=== PATIENT | female | born 1990 | race African-American/Black ===

== ENCOUNTER 2017-10-14 20:08 | Emergency (ER) | payer SELFPAY ==
[2017-10-14 21:25] LABS: Absolute Lymphocytes (CBC) 3.6 K/uL (0.7-4.9); Absolute Monocytes 0.6 K/uL (0.1-1.3); Absolute Neutrophil 6.4 K/uL (1.8-8.0); Basophils % 0.6 % (0-1.3); Eosinophils % 1.4 % (0-4.4); Hematocrit 37.9 % (36.0-45.0); Lymphocytes % 33.1 % (15.3-44.8); MCV 87.7 fL (80-100); MPV 8.5 fL (7.6-11.3); Monocytes % 5.9 % (3.3-12.3); RBC Red Blood Cell Count 4.32 M/uL (3.86-4.86)
[2017-10-14 21:34] LABS: Barbiturates NEGATIVE; Benzodiazepines NEGATIVE; Cocaine NEGATIVE; METHAMPHETAM NEGATIVE; Opiates NEGATIVE; Phencyclidine NEGATIVE; THC Cannibis POSITIVE
[2017-10-14] MEDS ORDERED: NA CHLORIDE 0.9% 1,000 ML ONE (21:46)
[2017-10-14 21:54] LABS: Bicarbonate 29 mEq/L (21-31); Glucose Level 94 mg/dL (65-120); Potassium 3.5 mEq/L (3.6-5.0); Sodium Level 139 mEq/L (135-145)
[2017-10-14 22:00] LABS: ALT/SGPT 12 IU/L (10-60); AST/SGOT 20 IU/L (10-42); Albumin 4.1 g/dL (3.2-5.5); Alkaline Phosphatase 59 IU/L (42-121); BUN Blood Urea Nitrogen 11 mg/dL (6-20); Bilirubin Direct 0.1 mg/dL (0-0.2); Bilirubin Total 0.4 mg/dL (0.3-1.2); Protein, Total 7.3 g/dL (6.0-8.3)
[2017-10-14] MEDS ORDERED: POTASSIUM 25 MEQ EFFERV TAB ONE (22:03)
--- NOTE | 2017-10-14 22:30 | RAD REPORT ---
EXAM DESCRIPTION: CT - Chest For Pe Angio - 10/14/2017 10:20 pm CLINICAL HISTORY: Chest pain COMPARISON: None. TECHNIQUE: Dynamically enhanced axial 3 mm thick images of the chest were obtained during administra tion of <100> mL Isovue 370 IV contrast. Coronal and oblique reconstruction images were generated and reviewed. Exam utilizes a protocol for optimal evaluation of pulmonary arterial tree. All CT scans are performed using dose optimization technique as appropriate and may include automated exposure control or mA/KV adjustment according to patient size. FINDINGS: A pulmonary embolus is not seen. A thoracic aortic aneurysm is not noted. A bovine aorta is present A pleural effusion is not seen. A pericardial effusion is not seen. A lung consolidation is not present. IMPRESSION: Negative for a pulmonary embolism.
--- NOTE | 2017-10-14 22:42 | ER ---
Nurse's Notes [facility] Name: Mattie Duffy Age: 27 yrs Sex: Female : 1990 Arrival Date: 10/14/2017 Time: 20:12 Bed 26 Private MD: Diagnosis: Other chest pain;Paresthesia of skin-Right Forearm Presentation: 10/14 20:18 Presenting complaint: Patient states: Left anterior chest pain that started last night aj while riding in car. Patient reports pain is intermittent and is worse with deep breathing. Denies N/V. Transition of care: patient was not received from another setting of care. Onset of symptoms was October 13, 2017. Initial Sepsis Screen: Does the patient meet any 2 criteria? No. Patient's initial sepsis screen is negative. Does the patient have a suspected source of infection? No. Patient's initial sepsis screen is negative. Care prior to arrival: None. 20:18 Method Of Arrival: Ambulatory aj 20:18 Acuity: MARK 3 aj Triage Assessment: 20:20 General: Appears in no apparent distress. comfortable, Behavior is calm, cooperative, aj appropriate for age. Pain: Complains of pain in chest Pain currently is 0 out of 10 on a pain scale. at worst was 10 out of 10 on a pain scale. Neuro: Level of Consciousness is awake, alert, obeys commands, Oriented to person, place, time, situation, Appropriate for age. Cardiovascular: Reports chest pain, Capillary refill < 3 seconds in bilateral fingers Patient's skin is warm and dry. Respiratory: Reports pain with respiration Airway is patent Respiratory effort is even, unlabored, Respiratory pattern is regular, symmetrical. Derm: Skin is intact, is healthy with good turgor, Skin is pink, warm \T\ dry. normal. 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 - Social history:: Smoking status: Patient/guardian denies using tobacco, Patient uses street drugs, marijuana. Screenin:30 Abuse screen: Denies threats or abuse. Denies injuries from another. Nutritional kr2 screening: No deficits noted. Tuberculosis screening: No symptoms or risk factors identified. Fall Risk None identified. Assessment: 20:30 General: Appears in no apparent distress. comfortable, well groomed, well developed, kr2 well nourished, Behavior is calm, cooperative, appropriate for age. Pain: Complains of pain in chest Pain does not radiate. Pain currently is 0 out of 10 on a pain scale. at worst was 8 out of 10 on a pain scale. Quality of pain is described as pressure, sharp, Pain began suddenly, 1 day ago. Is episodic, Alleviated by rest. Neuro: Level of Consciousness is awake, alert, obeys commands, Oriented to person, place, time, situation, Appropriate for age. Cardiovascular: Capillary refill < 3 seconds in bilateral fingers Patient's skin is warm and dry. Respiratory: Airway is patent Respiratory effort is even, unlabored, Respiratory pattern is regular, symmetrical. GI: Abdomen is flat, non-distended. : No signs and/or symptoms were reported regarding the genitourinary system. EENT: Nares are clear Oral mucosa is moist. Derm: Skin is intact, is healthy with good turgor, Skin is pink, warm \T\ dry. Musculoskeletal: Circulation, motion, and sensation intact. 21:30 Reassessment: Patient appears in no apparent distress at this time. Patient and/or kr2 family updated on plan of care and expected duration. Pain level reassessed. Patient is alert, oriented x 3, equal unlabored respirations, skin warm/dry/pink. Patient denies pain at this time. 22:30 Reassessment: Patient appears in no apparent distress at this time. Patient and/or kr2 family updated on plan of care and expected duration. Pain level reassessed. Patient is alert, oriented x 3, equal unlabored respirations, skin warm/dry/pink. Patient denies pain at this time. 10/15 00:29 Reassessment: Reassessment: Patient left at 2315 but was not taken off of status board. kr Vital Signs: 10/14 20:20 BP 127 / 78; Pulse 72; Resp 16; Temp 98.6; Pulse Ox 98% on R/A; Weight 52.16 kg; Height aj 5 ft. 2 in. (157.48 cm); Pain 0/10; 21:30 BP 114 / 70; Pulse 57; Resp 16; Pulse Ox 98% on R/A; kr2 22:25 BP 121 / 61; Pulse 58; Resp 17; Pulse Ox 100% on R/A; kr2 23:30 BP 122 / 60; Pulse 60; Resp 15; Pulse Ox 100% on R/A; kr2 20:20 Body Mass Index 21.03 (52.16 kg, 157.48 cm) ED Course: 20:12 Patient arrived in ED. al2 20:19 Triage completed. aj 20:20 Arm band placed on right wrist. Patient placed in an exam room. aj 20:30 Patient has correct armband on for positive identification. Bed in low position. Call kr2 light in reach. Side rails up X 1. secured entrance monitor on. Pulse ox on. NIBP on. Door closed. Warm blanket given. Head of bed elevated. 20:30 Patient maintains SpO2 saturation greater than 95% on room air. kr2 20:39 Gume Alcocer PA is PHCP. cp 20:39 Gume Cui MD is Attending Physician. cp 21:04 Initial lab(s) drawn, by id, sent to lab. Urine collected: clean catch specimen, liza cb2 colored, EKG done, by ED staff, reviewed by Gume Cui MD. Inserted saline lock: 20 gauge in right antecubital area, using aseptic technique. Blood collected. 21:32 Notified Nurse Practitioner and/or Physician Weight Reducing Technician of a critical lab result(s), d fc dimer 539. 21:58 Radiology exam delayed due to lab results not completed at this time. (BUN/Creatinine). vm2 21:58 Maria Luz Abraham, RN is Primary Nurse. kr2 22:[address] via wheelchair. vm2 22:20 CT Chest For PE Angio In Process Unspecified. EDMS 23:10 IV discontinued, intact, bleeding controlled, No redness/swelling at site. Pressure kr2 dressing applied. 23:30 No provider procedures requiring assistance completed. kr2 Administered Medications: 21:50 Drug: NS 0.9% 1000 ml Route: IV; Rate: 1 bolus; Site: right antecubital; kr2 22:30 Follow up: Response: No adverse reaction; IV Status: Completed infusion kr2 22:30 Drug: Potassium Effervescent Tablet 25 mEq Route: PO; kr2 23:00 Follow up: Response: No adverse reaction kr2 22:59 Drug: TORadol 30 mg Route: IVP; Site: right antecubital; kr2 23:15 Follow up: Response: No adverse reaction kr2 Outcome: 22:42 Discharge ordered by . trevor 23:10 Discharged to home ambulatory, with family. kr2 23:10 Condition: good 23:10 Discharge instructions given to patient, Instructed on discharge instructions, follow up and referral plans. medication usage, Demonstrated understanding of instructions, follow-up care, medications, Prescriptions given X 1. 10/15 00:27 Patient left the ED. fc Signatures: Dispatcher [employer] EDAdelia Mohan RN RN Sary Dang RN RN fc Gume Alcocer PA PA cp McGuire, Victoria vm2 Bulan, Christian cb2 Reaves, Karey, RN RN kr2 Coco Koroma
--- NOTE | 2017-10-14 22:42 | EDPHYS ---
Physician Documentation [facility] Name: Mattie Duffy Age: 27 yrs Sex: Female : 1990 Arrival Date: 10/14/2017 Time: 20:12 Bed 26 Private MD: ED Physician Gume Cui HPI: 10/14 20:52 This 27 yrs old Black Female presents to ER via Ambulatory with complaints of Chest cp Pain, R ARM NUMBNESS. 20:52 The patient or guardian reports chest pain that is located primarily in the anterior cp chest wall, bilaterally. 20:52 The pain does not radiate. Associated signs and symptoms: Pertinent positives: cp intermittent paresthesias of right forearm, Pertinent negatives: abdominal pain, cough, headache, lower extremity pain, lower extremity swelling, near syncope, recent travel, shortness of breath, syncope, vomiting. The chest pain is described as sharp. 20:52 Duration: The patient or guardian reports a single episode, that is still ongoing, and cp worsening. Modifying factors: the symptoms are aggravated by deep breath, palpation of area. 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 - Social history:: Smoking status: Patient/guardian denies using tobacco, Patient uses street drugs, marijuana. ROS: 20:55 Constitutional: Negative for body aches, chills, fever, poor PO intake. cp 20:55 Eyes: Negative for injury, pain, redness, and discharge. cp 20:55 ENT: Negative for drainage from ear(s), ear pain, sore throat, difficulty swallowing, difficulty handling secretions. 20:55 Cardiovascular: Positive for chest pain, Negative for edema, palpitations. 20:55 Respiratory: Negative for cough, dyspnea on exertion, shortness of breath, wheezing. 20:55 Abdomen/GI: Negative for abdominal pain, vomiting, diarrhea, constipation, black/tarry stool, rectal bleeding. 20:55 Back: Negative for pain at rest, pain with movement, radiated pain. 20:55 : Negative for urinary symptoms. 20:55 Skin: Negative for cellulitis, rash. 20:55 Neuro: Negative for altered mental status, headache, syncope, near syncope, weakness. 20:55 All other systems are negative. Exam: 20:38 ECG was reviewed by the Attending Physician. cp 21:03 Constitutional: The patient appears in no acute distress, alert, awake, cp non-diaphoretic, non-toxic, well developed, well nourished. 21:03 Head/Face: Normocephalic, atraumatic. cp 21:03 Eyes: Periorbital structures: appear normal, Pupils: equal, round, and reactive to light and accomodation, Extraocular movements: intact throughout, Conjunctiva: normal, no exudate, no injection, Sclera: no appreciated abnormality, Lids and lashes: appear normal, bilaterally. 21:03 ENT: External ear(s): are unremarkable, Ear canal(s): are normal, clear, TM's: bulging, is not appreciated, bilaterally, dullness, bilaterally, erythema, is not appreciated, bilaterally, Nose: is normal, Mouth: Lips: moist, Oral mucosa: pink and intact, moist, Posterior pharynx: is normal, airway is patent, no erythema, no exudate, Voice: is normal. 21:03 Neck: ROM/movement: is normal, is supple, without pain, no range of motions limitations, no nuchal rigidity. 21:03 Chest/axilla: Inspection: normal, Palpation: crepitus, is not appreciated, tenderness, that is mild, of the mid-sternal area, that partially reproduces the patient's complaints. 21:03 Cardiovascular: Rate: normal, Rhythm: regular, Pulses: Pulses are 2+ in right radial artery and left radial artery. Heart sounds: murmur, not appreciated, rub, not appreciated, gallop, not appreciated, Edema: is not appreciated, JVD: is not appreciated. 21:03 Respiratory: the patient does not display signs of respiratory distress, Respirations: normal, no use of accessory muscles, no retractions, no splinting, no tachypnea, labored breathing, is not present, Breath sounds: are clear throughout, no decreased breath sounds, no stridor, no wheezing. 21:03 Abdomen/GI: Inspection: abdomen appears normal, Bowel sounds: active, all quadrants, Palpation: abdomen is soft and non-tender, in all quadrants, rebound tenderness, is not appreciated, voluntary guarding, is not appreciated, involuntary guarding, is not appreciated. Vital Signs: 20:20 BP 127 / 78; Pulse 72; Resp 16; Temp 98.6; Pulse Ox 98% on R/A; Weight 52.16 kg; Height aj 5 ft. 2 in. (157.48 cm); Pain 0/10; 21:30 BP 114 / 70; Pulse 57; Resp 16; Pulse Ox 98% on R/A; kr2 22:25 BP 121 / 61; Pulse 58; Resp 17; Pulse Ox 100% on R/A; kr2 23:30 BP 122 / 60; Pulse 60; Resp 15; Pulse Ox 100% on R/A; kr2 20:20 Body Mass Index 21.03 (52.16 kg, 157.48 cm) aj MDM: 20:39 Patient medically screened. cp 21:00 Differential diagnosis: abnormal EKG, acute pericarditis, cholecystitis, Cholelithiasis cp costochondritis, esophagitis, gastritis, pancreatitis, peptic ulcer disease, pericarditis, pleurisy, pneumonia, pneumothorax, pulmonary embolus. 22:40 Data reviewed: vital signs, nurses notes, lab test result(s), EKG, radiologic studies, cp CT scan. 22:40 Test interpretation: by ED physician or midlevel provider: ECG. Counseling: I had a cp detailed discussion with the patient and/or guardian regarding: the historical points, exam findings, and any diagnostic results supporting the discharge/admit diagnosis, lab results, radiology results, the need for outpatient follow up, a family practitioner, to return to the emergency department if symptoms worsen or persist or if there are any questions or concerns that arise at home. 10/14 20:46 Order name: UDS; Complete Time: 22:01 cp 10/14 22:01 Interpretation: Normal except: THC POSITIVE. cp 10/14 20:46 Order name: CBC with Diff; Complete Time: 22:01 cp 10/14 20:46 Order name: BMP; Complete Time: 22:01 cp 10/14 22:01 Interpretation: Normal except: K 3.5. cp 10/14 20:46 Order name: LFT's; Complete Time: 22:01 cp 10/14 20:46 Order name: D-Dimer; Complete Time: 22:01 cp 10/14 22:18 Order name: Urine Dipstick--Ancillary (enter results) em1 10/14 20:46 Order name: Urine Dipstick-Ancillary (obtain specimen); Complete Time: 21:04 cp 10/14 20:46 Order name: Urine Test (obtain specimen); Complete Time: 21:04 cp 10/14 20:46 Order name: EKG; Complete Time: 20:47 cp 10/14 21:42 Order name: CT Chest For PE Angio; Complete Time: 22:34 cp 10/14 22:18 Order name: Urine --Ancillary (enter results) em1 10/14 20:46 Order name: EKG - Nurse/Tech; Complete Time: 21:04 cp EC:38 Rate is 58 beats/min. Rhythm is regular. ID interval is normal. QRS interval is normal. cp QT interval is normal. No ST changes noted. Interpreted by me. Reviewed by me. Administered Medications: 21:50 Drug: NS 0.9% 1000 ml Route: IV; Rate: 1 bolus; Site: right antecubital; kr2 22:30 Follow up: Response: No adverse reaction; IV Status: Completed infusion kr2 22:30 Drug: Potassium Effervescent Tablet 25 mEq Route: PO; kr2 23:00 Follow up: Response: No adverse reaction kr2 22:59 Drug: TORadol 30 mg Route: IVP; Site: right antecubital; kr2 23:15 Follow up: Response: No adverse reaction kr2 Disposition: 10/15 14:31 Co-signature as Attending Physician, Gume Cui MD I agree with the assessment and [facility] plan of care. Disposition: 10/14/17 22:42 Discharged to Home. Impression: Other chest pain, Paresthesia of skin - Right Forearm. - Condition is Stable. - Discharge Instructions: Chest Wall Pain, Paresthesia. - Prescriptions for Diclofenac Sodium 75 mg Oral Tablet, Delayed Release (E.C.) - take 1 tablet by ORAL route 2 times per day; 20 tablet. - Medication Reconciliation Form, Thank You Letter, Antibiotic Education, Prescription Opioid Use form. - Follow up: Private Physician; When: 2 - 3 days; Reason: Recheck today's complaints. - Problem is new. - Symptoms have improved. Signatures: Dispatcher [employer] Adelia Umanzor RN RN aj Anderson, Corey, MD MD [facility] Sary, RN RN fc Gume Alcocer PA PA cp Reaves, Karey, RN RN kr2
[2017-10-14] MEDS ORDERED: KETOROLAC 30 MG/ML INJ ONE (22:47)
[2017-10-14 23:14] LABS: Urine Blood 1+ (NEG); Urine Glucose NEGATIVE (NEG); Urine Protein NEGATIVE (NEG); Urine Specific Gravity >1.030 (1.005-1.030)
[2017-10-15 00:32] VITALS: TEMP 98.6
[2017-10-15 00:34] VITALS: O2SAT 100
[2017-10-15 00:35] VITALS: BP 122/60
--- NOTE | 2017-10-15 16:28 | EKG ---
Test Date: 2017-10-14 Test Time: 20:30:00 Special Education Classroom Aide: ARIANNA MEASUREMENT RESULTS: Intervals: Rate: 58 NM: 116 QRSD: 76 QT: 370 QTc: 363 [place]: P: 4 NM: 116 QRS: 47 T: 32 INTERPRETIVE STATEMENTS: Sinus bradycardia Otherwise normal ECG Compared to ECG 10/15/2010 16:56:08 Sinus rhythm no longer present Sinus arrhythmia no longer present Electronically Signed On 10-15-17 16:23:57 CDT by Hill Mata
== END 2017-10-15 00:27 | disposition home or self-care (01) ==
LOC: ER 20:08
DX: R20.2 Paresthesia of skin (principal); F12.90 Cannabis use, unspecified, uncomplicated
CPT/HCPCS: 36415; 71275; 80048; 80076; 80307; 81003; 81025; 85025; 85379; 93005; 96361; 96374; 99285; J7030; Q9967

== ENCOUNTER 2020-04-09 23:59 | Emergency (ER) | payer SELFPAY ==
[2020-04-10] MEDS ORDERED: NA CHLORIDE 0.9% 100 ML IV ONE (00:48)
[2020-04-10] MEDS ORDERED: NA CHLORIDE 0.9% 1,000 ML ONE (00:48)
[2020-04-10] MEDS ORDERED: LEVETIRACETAM 500 MG/5 ML VIAL IV ONE (00:48)
[2020-04-10 01:04] LABS: Urine Blood 1+ (NEG); Urine Glucose NEGATIVE (NEG); Urine Protein 3+ (NEG); Urine Specific Gravity >1.030 (1.005-1.030)
[2020-04-10 01:04] LABS: Absolute Lymphocytes (CBC) 1.9 K/uL (0.7-4.9); Basophils % 0.3 % (0-1.3); Hematocrit 37.2 % (36.0-45.0); MPV 8.1 fL (7.6-11.3); RBC Red Blood Cell Count 4.16 M/uL (3.86-4.86)
[2020-04-10 01:07] LABS: Urine Bacteria 20-50 /HPF (<20); Urine Culture Reflex Order REFLEXED; Urine RBC <5 /HPF (NONE SEEN)
[2020-04-10 01:12] LABS: Potassium 3.3 mmol/L (3.5-5.1)
[2020-04-10] MEDS ORDERED: METOCLOPRAMIDE 10 MG/2mL INJ ONE (01:19)
[2020-04-10] MEDS ORDERED: KETOROLAC 30 MG/ML INJ ONE (01:19)
--- NOTE | 2020-04-10 01:27 | ER ---
Nurse's Notes [facility] Name: Mattie Duffy Age: 29 yrs Sex: Female : 1990 Arrival Date: 04/10/2020 Time: 00:03 Bed 5 Private MD: Diagnosis: Epilepsy and recurrent seizures;Urinary tract infection, site not specified Presentation: 04/10 00:03 Chief complaint: EMS states: they were toned out for report of pt having a witnessed bb seizure pt was post ictal on their arrival but is A\T\O x 4 in the ED. Coronavirus screen: At this time, the client does not indicate any symptoms associated with coronavirus-19. Ebola Screen: No symptoms or risks identified at this time. Initial Sepsis Screen: Does the patient meet any 2 criteria? No. Patient's initial sepsis screen is negative. Does the patient have a suspected source of infection? No. Patient's initial sepsis screen is negative. Risk Assessment: Do you want to hurt yourself or someone else? Patient reports no desire to harm self or others. Onset of symptoms was April 10, 2020. 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 - Social history:: Smoking status: Patient denies any tobacco usage or history of. Patient uses alcohol, occasionally. Patient/guardian denies using street drugs. - Family history:: not pertinent. - Hospitalizations: : No recent hospitalization is reported. Screenin:10 Abuse screen: Denies threats or abuse. Denies injuries from another. Nutritional wh screening: No deficits noted. Tuberculosis screening: No symptoms or risk factors identified. Fall Risk None identified. Assessment: 00:10 General: Appears in no apparent distress. Behavior is calm, cooperative, appropriate wh for age. Pain: Complains of pain in head ache. Neuro: Level of Consciousness is awake, alert, obeys commands, Oriented to person, place, time, situation, Appropriate for age Reports headache. Cardiovascular: Capillary refill < 3 seconds. Respiratory: Airway is patent Respiratory effort is even, unlabored, Respiratory pattern is regular, symmetrical. GI: Abdomen is flat, non-distended. : No signs and/or symptoms were reported regarding the genitourinary system. EENT: No signs and/or symptoms were reported regarding the EENT system. Derm: Skin is intact, is healthy with good turgor, Skin is pink, warm \T\ dry. normal. Musculoskeletal: Circulation, motion, and sensation intact. 01:14 Reassessment: Patient appears in no apparent distress at this time. No changes from previously documented assessment. Patient and/or family updated on plan of care and expected duration. Pain level reassessed. Patient is alert, oriented x 3, equal unlabored respirations, skin warm/dry/pink. Vital Signs: 00:03 BP 113 / 73; Pulse 96; Resp 16 S; Temp 98(TE); Pulse Ox 100% on R/A; Weight 52.16 kg bb (R); Height 5 ft. 2 in. (157.48 cm) (R); Pain 8/10; 01:16 BP 109 / 69; Pulse 98; Resp 18; Pulse Ox 99% on R/A; wh 00:03 Body Mass Index 21.03 (52.16 kg, 157.48 cm) bb [place] Coma Score: 00:10 Eye Response: spontaneous(4). Verbal Response: oriented(5). Motor Response: obeys bb commands(6). Total: 15. ED Course: 00:03 Patient arrived in ED. cf2 00:03 Brandon Jacques MD is Attending Physician. rn 00:07 Triage completed. bb 00:09 Mikey Escalera is Primary Nurse. wh 00:10 Arm band placed on Patient placed in an exam room, on a stretcher, on pulse oximetry. bb 00:10 Patient has correct armband on for positive identification. Bed in low position. Call light in reach. Side rails up X 1. Seizure precautions initiated. Pulse ox on. NIBP on. 00:30 Inserted saline lock: 18 gauge in left forearm, using aseptic technique. Blood wh collected. By Arian MARTINEZ. 01:27 Clifton Carrasquillo MD is Referral Physician. rn 01:42 No provider procedures requiring assistance completed. IV discontinued, intact, wh bleeding controlled, No redness/swelling at site. Administered Medications: 00:45 Drug: NS 0.9% 1000 ml Route: IV; Rate: 1000 ml; Site: right forearm; 4 01:44 Follow up: Response: No adverse reaction; IV Status: Completed infusion 00:45 Drug: Keppra 1000 mg Route: IV; Rate: calculated rate; Site: right forearm; jb4 01:00 Follow up: Response: No adverse reaction; IV Status: Completed infusion [facility] 01:06 Drug: TORadol - Ketorolac 15 mg Route: IVP; Site: left antecubital; 01:42 Follow up: Response: No adverse reaction; Pain is decreased 01:08 Drug: Reglan 10 mg Route: IVP; Site: left antecubital; 01:42 Follow up: Response: No adverse reaction 01:35 Drug: Cipro 500 mg Route: PO; 01:42 Follow up: Response: No adverse reaction Outcome: 01:27 Discharge ordered by . giselle 01:43 Discharged to home ambulatory. 01:43 Condition: stable 01:43 Discharge instructions given to patient, Instructed on discharge instructions, follow up and referral plans. medication usage, POC Demonstrated understanding of instructions, follow-up care, medications, POC Prescriptions given X 2. 01:43 Patient left the ED. Signatures: Jessica Mirza RN RN bb Nieto, Roman, MD MD rn Bryson, James, RN RN jb4 Habalo, Winsy Valdemar Astudillo cf2
--- NOTE | 2020-04-10 01:27 | EDPHYS ---
Physician Documentation [facility] Name: Mattie Duffy Age: 29 yrs Sex: Female : 1990 Arrival Date: 04/10/2020 Time: 00:03 Bed 5 Private MD: ED Physician Brandon Jacques HPI: 04/10 00:08 This 29 yrs old Black Female presents to ER via EMS with complaints of Seizure. rn 00:08 The patient presents after having a single isolated seizure. Character of seizure(s): rn Loss of consciousness: the patient did not lose consciousness, Motor activity: generalized, Incontinence: none, Circulation: the patient did not experience evidence of pulse disturbance. Seizure onset: just prior to arrival. Associated injury: The patient did not suffer any apparent associated injury. Current symptoms: headache. The patient has experienced similar episodes in the past. Reports seizure prior to arrival, witnessed by friends, they report several episodes of seizures, last one 2 weeks ago. NO fever/injury. Report generalized shaking, lasted 1-2 minutes followed by confusion. No meds given by EMS. Now back to baseline. Has not felt ill lately. Denies drugs or ETOH. . 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 - Social history:: Smoking status: Patient denies any tobacco usage or history of. Patient uses alcohol, occasionally. Patient/guardian denies using street drugs. - Family history:: not pertinent. - Hospitalizations: : No recent hospitalization is reported. ROS: 00:08 Constitutional: Negative for fever, chills, and weight loss, Eyes: Negative for injury, rn pain, redness, and discharge, Neck: Negative for injury, pain, and swelling, Cardiovascular: Negative for chest pain, palpitations, and edema, Respiratory: Negative for shortness of breath, cough, wheezing, and pleuritic chest pain, Abdomen/GI: Negative for abdominal pain, nausea, vomiting, diarrhea, and constipation, MS/Extremity: Negative for injury and deformity, Skin: Negative for injury, rash, and discoloration, Neuro: Negative for weakness, numbness, tingling Exam: 00:08 Constitutional: This is a well developed, well nourished patient who is awake, alert, rn and in no acute distress. Head/Face: Normocephalic, atraumatic. ENT: No oral trauma Cardiovascular: Regular rate and rhythm. No pulse deficits. Respiratory: Speaking full sentences, unlabored breathing. Skin: Warm, dry, no cyanosis MS/ Extremity: Pulses equal, no cyanosis. Neuro: Awake and alert, GCS 15, oriented to person, place, time, and situation. Cranial nerves II-XII grossly intact. Motor strength 5/5 in all extremities. Sensory grossly intact. Cerebellar exam normal. Normal gait. 00:28 ECG was reviewed by the Attending Physician. rn Vital Signs: 00:03 BP 113 / 73; Pulse 96; Resp 16 S; Temp 98(TE); Pulse Ox 100% on R/A; Weight 52.16 kg bb (R); Height 5 ft. 2 in. (157.48 cm) (R); Pain 8/10; 01:16 BP 109 / 69; Pulse 98; Resp 18; Pulse Ox 99% on R/A; wh 00:03 Body Mass Index 21.03 (52.16 kg, 157.48 cm) bb Yoan Coma Score: 00:10 Eye Response: spontaneous(4). Verbal Response: oriented(5). Motor Response: obeys bb commands(6). Total: 15. MDM: 00:03 Patient medically screened. rn 01:26 Differential diagnosis: seizure. Data reviewed: vital signs, nurses notes, lab test rn result(s), EKG, and as a result, I will discharge patient. Counseling: I had a detailed discussion with the patient and/or guardian regarding: the historical points, exam findings, and any diagnostic results supporting the discharge/admit diagnosis, lab results, the need for outpatient follow up, to return to the emergency department if symptoms worsen or persist or if there are any questions or concerns that arise at home. Response to treatment: the patient's symptoms have markedly improved after treatment, the patient's condition has returned to base line, and as a result, I will discharge patient. Special discussion: I discussed with the patient/guardian in detail that at this point there is no indication for admission to the hospital. It is understood, however, that if the symptoms persist or worsen the patient needs to return immediately for re-evaluation. Based on the history and exam findings, there is no indication for further emergent testing or inpatient evaluation. I discussed with the patient/guardian the need to see the neurologist for further evaluation of the symptoms. 04/10 00:08 Order name: CBC with Diff; Complete Time: : rn 04/10 00:08 Order name: Basic Metabolic Panel; Complete Time: rn 04/10 00:08 Order name: Urine Microscopic Only; Complete Time: rn 04/10 00:42 Order name: Urine Dipstick--Ancillary (enter results); Complete Time: tt3 04/10 00:42 Order name: Urine --Ancillary (enter results); Complete Time: tt3 04/10 01:08 Order name: Urine Culture EDMS 04/10 00:08 Order name: IV Start; Complete Time: 00:49 rn 04/10 00:08 Order name: EKG; Complete Time: 00: rn 04/10 00:08 Order name: EKG - Nurse/Tech; Complete Time: 00:29 rn 04/10 00:08 Order name: Urine Test (obtain specimen); Complete Time: 00: rn 04/10 00:08 Order name: Urine Dipstick-Ancillary (obtain specimen); Complete Time: 00:49 rn EC:28 Rate is 79 beats/min. Rhythm is regular. QRS [place] is Normal. [place] interval is normal. QRS rn interval is normal. QT interval is normal. No Q waves. T waves are Normal. No ST changes noted. Clinical impression: Normal ECG. Interpreted by me. Reviewed by me. Administered Medications: 00:45 Drug: NS 0.9% 1000 ml Route: IV; Rate: 1000 ml; Site: right forearm; jb4 01:44 Follow up: Response: No adverse reaction; IV Status: Completed infusion 00:45 Drug: Keppra 1000 mg Route: IV; Rate: calculated rate; Site: right forearm; jb4 01:00 Follow up: Response: No adverse reaction; IV Status: Completed infusion jb4 01:06 Drug: TORadol - Ketorolac 15 mg Route: IVP; Site: left antecubital; 01:42 Follow up: Response: No adverse reaction; Pain is decreased 01:08 Drug: Reglan 10 mg Route: IVP; Site: left antecubital; 01:42 Follow up: Response: No adverse reaction 01:35 Drug: Cipro 500 mg Route: PO; 01:42 Follow up: Response: No adverse reaction Disposition: 04/10/20 01:27 Discharged to Home. Impression: Epilepsy and recurrent seizures, Urinary tract infection, site not specified. - Condition is Stable. - Discharge Instructions: Seizure, Adult, Urinary Tract Infection, Adult. - Prescriptions for Keppra 500 mg Oral Tablet - take 1 tablet by ORAL route every 12 hours; 60 tablet. Cipro 500 mg Oral Tablet - take 1 tablet by ORAL route every 12 hours for 7 days; 14 tablet. - Medication Reconciliation Form, Thank You Letter, Antibiotic Education, Prescription Opioid Use form. - Follow up: Cl[facility] Carrasquillo; When: As needed; Reason: Recheck today's complaints, Re-evaluation by your physician. - Problem is an ongoing problem. - Symptoms have improved. Signatures: Dispatcher [employer] EDMS Jessica Mirza RN RN bb Nieto, Roman, MD MD rn Bryson, James, RN RN jb4 Mikey Escalera Corrections: (The following items were deleted from the chart) 01:04/10/2020 01:27 Discharged to Home. Impression: Epilepsy and recurrent seizures. rn Condition is Stable. Discharge Instructions: Seizure, Adult. Prescriptions for Keppra 500 mg Oral Tablet - take 1 tablet by ORAL route every 12 hours; 60 tablet. and Forms are Medication Reconciliation Form, Thank You Letter, Antibiotic Education, Prescription Opioid Use. Follow up: Clifton Carrasquillo; When: As needed; Reason: Recheck today's complaints, Re-evaluation by your physician. Problem is an ongoing problem. Symptoms have improved. rn 01:43 01:04/10/2020 01:27 Discharged to Home. Impression: Epilepsy and recurrent seizures; Urinary tract infection, site not specified. Condition is Stable. Discharge Instructions: Seizure, Adult, Urinary Tract Infection, Adult. Prescriptions for Keppra 500 mg Oral Tablet - take 1 tablet by ORAL route every 12 hours; 60 tablet, Cipro 500 mg Oral Tablet - take 1 tablet by ORAL route every 12 hours for 7 days; 14 tablet. and Forms are Medication Reconciliation Form, Thank You Letter, Antibiotic Education, Prescription Opioid Use. Follow up: Clifton Carrasquillo; When: As needed; Reason: Recheck today's complaints, Re-evaluation by your physician. Problem is an ongoing problem. Symptoms have improved. rn
[2020-04-10] MEDS ORDERED: CIPROFLOXACIN HCL 500 MG TAB ONE (01:51)
[2020-04-10 01:52] VITALS: TEMP 98
[2020-04-10 01:53] VITALS: BP 109/69; O2SAT 99
--- NOTE | 2020-04-10 11:28 | EKG ---
Test Date: 2020-04-10 Test Time: 00:30:35 Social Services Analyst: ANAI MEASUREMENT RESULTS: Intervals: Rate: 79 WI: 124 QRSD: 74 QT: 342 QTc: 392 [place]: P: 31 WI: 124 QRS: 46 T: 37 INTERPRETIVE STATEMENTS: Normal sinus rhythm Normal ECG Compared to ECG 10/14/2017 20:30:00 Sinus bradycardia no longer present Electronically Signed On 04-10-20 11:27:00 CDT by Hill Mata
== END 2020-04-10 01:43 | disposition home or self-care (01) ==
LOC: ER 23:59
DX: N39.0 Urinary tract infection, site not specified (principal)
CPT/HCPCS: 36415; 80048; 81003; 81015; 81025; 85025; 87086; 87088; 93005; 99284; J1953; J2765; J7030

== ENCOUNTER 2023-02-04 19:30 | Emergency (ER) | payer SELFPAY ==
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
--- NOTE | 2023-02-04 21:57 | ER ---
Nurse's Notes [facility] Name: Mattie Duffy Age: 32 yrs Sex: Female : 1990 Arrival Date: 02/04/2023 Time: 19:30 Bed IW1 Private MD: Diagnosis: Presentation: 02/04 20:18 Chief complaint: Patient states: right shoulder pain X3 weeks. Pt was seen at [facility] 2 cm10 weeks ago and was diagnosed with a "shoulder spasm". Pt able to move right arm in triage. Coronavirus screen: Vaccine status: Patient reports being unvaccinated. Ebola Screen: Patient denies travel to an Ebola-affected area in the 21 days before illness onset. No symptoms or risks identified at this time. Initial Sepsis Screen: Does the patient meet any 2 criteria? No. Patient's initial sepsis screen is negative. Does the patient have a suspected source of infection? No. Patient's initial sepsis screen is negative. Risk Assessment: Do you want to hurt yourself or someone else? Patient reports no desire to harm self or others. Onset of symptoms was February 04, 2023. 20:18 Method Of Arrival: Ambulatory cm10 20:18 Acuity: MARK 4 cm10 21:53 Note Pt states that she is leaving because her ride is here and has been waiting for cm10 3hrs. Pt encouraged to stay but stated that she wanted to leave. Pt leaving A\\T\\Ox4, ambulatory with steady gait. Historical: - Allergies: 20:19 No Known Allergies; cm10 - Home Meds: 20:19 None [Active]; cm10 - PMHx: 20:19 None; cm10 - PSHx: 20:19 None; cm10 - Immunization history:: Adult Immunizations unknown. - Social history:: Smoking status: Patient denies any tobacco usage or history of. Vital Signs: 20:18 BP 113 / 75; Pulse 85; Resp 18; Temp 97.7; Pulse Ox 100% ; Weight 54.43 kg; Height 5 cm10 ft. 3 in. ; Pain 10/10; 20:18 Body Mass Index 21.26 (54.43 kg, 160.02 cm) cm10 20:18 Pain Scale: Adult cm10 ED Course: 19:32 Patient arrived in ED. mr 20:19 Triage completed. cm10 20:19 Arm band placed on Patient placed in waiting room. cm10 20:30 Edilson Hussein MD is Attending Physician. kdr 22:09 Shoulder Right (2 View) XRAY In Process Unspecified. EDMS Administered Medications: No medications were administered Outcome: 21:56 Patient left the ED. cm10 Signatures: Dispatcher [employer] EDMS Edilson Hussein MD MD [facility], Madeline mr Kiara Koo RN RN cm10
[2023-02-04 22:12] VITALS: BP 113/75; TEMP 97.7; O2SAT 100
--- NOTE | 2023-02-04 22:20 | RAD REPORT ---
EXAM DESCRIPTION: RAD - Shoulder Right 2 View - 02/04/2023 10:08 pm CLINICAL HISTORY: PAIN COMPARISON: No comparisons FINDINGS/IMPRESSION: No acute fracture. No malalignment. No significant focal degenerative changes.
== END 2023-02-04 21:56 | disposition left against medical advice (07) ==
LOC: ER 19:30
DX: M25.511 Pain in right shoulder (principal)
CPT/HCPCS: 99281